=== PATIENT | female | born 2000 | race Asian ===

== ENCOUNTER 2022-07-30 22:17 | Emergency (ER) | payer OTHER ==
[~2022-07-30] VITALS: Ht 154.9 cm; Wt 64.4 kg
[2022-07-30] MEDS ORDERED: SODIUM CHLORIDE 0.9% 1000ML 1,000 ML IV STA (22:46)
[2022-07-30] MEDS ORDERED: ONDANSETRON HCL INJ 2MG/ML 2ML 2 MG/ML VIAL IV ONE (23:00)
[2022-07-30] MEDS ORDERED: KETOROLAC TROMETHAMINE 30 MG/ML VIAL IV ONE (23:00)
[2022-07-30] MEDS ORDERED: FAMOTIDINE 20 MG/2 ML VIAL IV ONE ×2 (23:00→23:18)
[2022-07-30] MEDS ORDERED: ONDANSETRON HCL INJ 2MG/ML 2ML 2 MG/ML VIAL ONE (23:17)
[2022-07-30] MEDS ORDERED: KETOROLAC TROMETHAMINE 30 MG/ML VIAL ONE (23:17)
[2022-07-30] MEDS ORDERED: SODIUM CHLORIDE 0.9% 1000ML 1,000 ML ONE (23:17)
[2022-07-30] MEDS ORDERED: IOPAMIDOL 370 MG/ML 100 ML INFUS..BTL INJ ONE (23:37)
[2022-07-31] MEDS ORDERED: ONDANSETRON ODT4 MG PO (00:19)
[2022-07-31] MEDS ORDERED: MAALOX MAXIMUM355 ML PO (00:19)
[2022-07-31 00:28] VITALS: BP 136/76
== END 2022-07-31 00:28 | disposition home or self-care (01) ==
LOC: FSED 22:47
DX: R11.0 Nausea (principal); K29.01 Acute gastritis with bleeding; R10.10 Upper abdominal pain, unspecified
CPT/HCPCS: 36415; 74177; 80048; 80076; 83690; 85025; 99284; J1885; J2405; J7030; Q9967